=== PATIENT | male | born 1935 | race Caucasian/White ===

== ENCOUNTER 2024-07-07 11:13 | Inpatient (IN) | payer OTHER ==
[~2024-07-07] VITALS: Ht 180.3 cm; Wt 83.0 kg
[2024-07-07] MEDS ORDERED: MULTI-VITAMIN1 EACH PO (13:08)
[2024-07-07] MEDS ORDERED: ARICEPT10 M1 PO (13:09)
[2024-07-07] MEDS ORDERED: ELIQUIS2.5 M1 PO (13:10)
[2024-07-07] MEDS ORDERED: VAZALORE325 MG PO (13:11)
[2024-07-07] MEDS ORDERED: NORVASC5 MG PO (13:11)
[2024-07-07] MEDS ORDERED: METOPROLOL25 MG PO (13:11)
[2024-07-07] MEDS ORDERED: CARBIDOPA-LEVO1 EAC5 PO (13:12)
[2024-07-07] MEDS ORDERED: POTASSIUM CHLO10 ME4 PO (13:13)
[2024-07-07] MEDS ORDERED: Ziprasidone Mesylate 20 MG VIAL IM PRN (13:20)
[2024-07-07] MEDS ORDERED: hydrOXYzine hydrochloride 50 MG/ML VIAL IM PRN (13:20)
[2024-07-07] MEDS ORDERED: LORazepam 1 MG TAB PO PRN (13:20)
[2024-07-07] MEDS ORDERED: Water, Sterile 10 ML VIAL IM PRN (13:25)
[2024-07-07 15:53] VITALS: BP 112/58
[2024-07-07] MEDS ORDERED: ACETAMINOPHEN 325 MG TAB PO PRN (17:10)
[2024-07-07] MEDS ORDERED: MG-AL HYDROXIDE/SIMETICONE 30 ML UDC PO PRN (17:10)
[2024-07-07] MEDS ORDERED: Magnesium Hydroxide 30 ML UDC PO PRN (17:10)
[2024-07-07] MEDS ORDERED: Menthol/Zinc Oxide 4 GM THIN T PRN (17:15)
[2024-07-07] MEDS ORDERED: CARBIDOPA-LEVO1 EAC6 PO (17:20)
[2024-07-07 20:00] VITALS: BP 142/88
[2024-07-07] MEDS ORDERED: APIXABAN 5 MG TAB PO SCH (21:00)
[2024-07-07] MEDS ORDERED: Memantine Hydrochloride 5 MG TAB PO SCH (21:00)
[2024-07-07] MEDS ORDERED: Mirtazapine 15 MG TAB PO SCH (21:00)
[2024-07-07] MEDS ORDERED: Metoprolol Tartrate 25 MG TAB PO SCH (21:00)
[2024-07-08 06:29] LABS: BASO # 0.1 10*3/uL (0.0-0.1); EOS # 0.2 10*3/uL (0.0-0.4); EOS % 2.1 % (1.0-4.0); HEMATOCRIT 47.8 % (42.0-52.0); MEAN CELL VOLUME 93.2 fl (80.0-94.0); MEAN CORPUSCULAR HGB 30.4 pg (27.0-31.0); MEAN CORPUSCULAR HGB CONC 32.6 g/dl (33.0-37.0); MEAN PLATELET VOLUME 10.3 fl (9.6-12.3); MONO # 0.9 10*3/uL (0.1-1.0); MONO % 11.1 % (3.0-9.0); NEUT # 4.4 10*3/uL (2.3-7.9); NEUT % 54.2 % (47.0-73.0); PLATELET COUNT AUTOMATED 197 10*3/uL (130-400); RED BLOOD COUNT 5.13 10*6/uL (4.50-5.90); RED CELL DISTRI WIDTH 14.7 % (0-14.5); WHITE BLOOD COUNT 8.1 10*3/uL (4.8-10.8)
[2024-07-08 06:35] LABS: ALKALINE PHOSPHATASE 58 U/L (46-116); BUN 25 mg/dl (9-23); CHLORIDE 109 mmol/L (98-107); CHOLESTEROL 211 mg/dL (<200); LDL CHOLESTEROL 140 mg/dL (9-159); POTASSIUM 4.1 mmol/L (3.4-5.1); SGPT/ALT 18 U/L (5-49); TOTAL PROTEIN 6.3 gm/dL (6.0-8.0); TRIGLYCERIDES 117 mg/dl (<150)
[2024-07-08 07:02] LABS: VITAMIN D, 25-HYDROXY 23.1 ng/mL (30-100)
[2024-07-08 08:00] VITALS: BP 158/78
[2024-07-08] MEDS ORDERED: amLODIPine besylate 5 MG TAB PO SCH (09:00)
[2024-07-08] MEDS ORDERED: Rivastigmine Tartrate 4.6 MG/24 HR PATCH T SCH (09:00)
[2024-07-08] MEDS ORDERED: POTASSIUM CHLORIDE 10 MEQ TAB PO SCH (09:00)
[2024-07-08 20:00] VITALS: BP 113/71
[2024-07-09 08:41] VITALS: BP 148/82
[2024-07-09 20:40] VITALS: BP 110/44
[2024-07-09] MEDS ORDERED: Memantine Hydrochloride 5 MG TAB PO SCH (21:00)
[2024-07-10 08:00] VITALS: BP 163/80
[2024-07-10] MEDS ORDERED: Rivastigmine Tartrate 9.5 MG/24 HR PATCH T SCH (09:00)
[2024-07-10] MEDS ORDERED: Cholecalciferol 5,000 IU CAP (125 MCG) PO SCH (09:00)
[2024-07-10 20:00] VITALS: BP 116/53
[2024-07-10] MEDS ORDERED: RAMELTEON 8 MG TAB PO SCH (21:00)
[2024-07-10] MEDS ORDERED: Memantine Hydrochloride 10 MG TAB PO SCH (21:00)
[2024-07-11 08:00] VITALS: BP 145/87
[2024-07-11] MEDS ORDERED: Memantine Hydrochloride 5 MG TAB PO SCH (09:00)
[2024-07-11 20:00] VITALS: BP 125/70
[2024-07-11] MEDS ORDERED: Memantine Hydrochloride 10 MG TAB PO SCH (21:00)
[2024-07-12 08:00] VITALS: BP 130/61
[2024-07-12] MEDS ORDERED: RIVASTIGMINE 13.3 MG/24 HR TDM T SCH (09:00)
[2024-07-12] MEDS ORDERED: FOAM BANDAGE HEEL T ONE (11:34)
[2024-07-12 20:37] VITALS: BP 130/61
[2024-07-13 08:00] VITALS: BP 139/64
[2024-07-13 10:05] LABS: BILIRUBIN Negative (Negative); BLOOD Trace-Intact (Negative); CLARITY Clear (Clear); COLOR Yellow (Yellow); GLUCOSE Negative (Negative); KETONE Negative (Negative); LEUKO ESTERASE 1+ (Negative); NITRITE Negative (Negative)
[2024-07-13 10:55] LABS: BACTERIA 2+; MUCOUS 1+; WBC 16-20 wbc/hpf (0-5)
[2024-07-13] MEDS ORDERED: DIVALPROEX (DR) 250 MG TAB PO SCH (13:00)
[2024-07-13 20:00] VITALS: BP 108/60
[2024-07-14 08:00] VITALS: BP 114/51
[2024-07-14] MEDS ORDERED: METOPROLOL25 MG PO (12:20)
[2024-07-14] MEDS ORDERED: CARBIDOPA-LEVO1 EAC6 PO (12:20)
[2024-07-14] MEDS ORDERED: POTASSIUM CHLO10 ME4 PO (12:20)
[2024-07-14] MEDS ORDERED: VITAMIN D3125 MC1 PO (12:20)
[2024-07-14] MEDS ORDERED: NORVASC5 MG PO (12:20)
[2024-07-14] MEDS ORDERED: MEMANTINE HCL10 MG PO (17:26)
[2024-07-14] MEDS ORDERED: RIVASTIGMINE1 EAC2 T (17:26)
[2024-07-14] MEDS ORDERED: MIRTAZAPINE15 M2 PO (17:26)
[2024-07-14] MEDS ORDERED: RAMELTEON8 MG PO (17:26)
[2024-07-14] MEDS ORDERED: DIVALPROEX SOD250 MG PO (17:26)
[2024-07-14 20:00] VITALS: BP 151/71
[2024-07-15 08:00] VITALS: BP 126/90
== END 2024-07-15 13:11 | DRG 885 ==
LOC: 3N 11:13
PROVIDERS: ADMIT Psychiatry & Neurology Psychiatry; ATTEND Psychiatry & Neurology Psychiatry
PROC: GZHZZZZ Group Psychotherapy (ICD-10-PCS; principal; 2024-07-08)
PROC: GZ51ZZZ Individual Psychotherapy, Behavioral (ICD-10-PCS; 2024-07-08)
DX: F33.2 Major depressive disorder, recurrent severe without psychotic features (principal); F63.81 Intermittent explosive disorder; I10 Essential (primary) hypertension; M10.9 Gout, unspecified; F03.90 Unspecified dementia, unspecified severity, without behavioral disturbance, psychotic disturbance, mood disturbance, and anxiety; I48.91 Unspecified atrial fibrillation; Z88.8 Allergy status to other drugs, medicaments and biological substances